=== PATIENT | female | born 1985 | race Caucasian/White ===

== ENCOUNTER → 2022-08-21 18:27 | Outpatient (ROUT) | payer OTHER, SELFPAY | PROVIDERS: Family Provider Family Medicine; PCP Family Medicine; Visit Provider Family Medicine | DX: A49.02 Methicillin resistant Staphylococcus aureus infection, unspecified site (principal) | CPT/HCPCS: 87070; 87075; 87205 ==

== ENCOUNTER → 2023-05-02 13:36 | Outpatient (CLI) | payer OTHER, SELFPAY ==
--- NOTE | 2023-05-02 13:40 | DI.MG.S_ITS ---
BILATERAL DIGITAL SCREENING MAMMOGRAM 3D/2D WITH CAD: 05/02/2023 CLINICAL: Baseline exam. Routine screening.Family history of breast cancer. No prior exams were available for comparison. Both breasts are almost entirely fatty (category a/<25% glandular tissue). Current study was also evaluated with a Computer Aided Detection (CAD) system. There is a focal asymmetry in the right breast at 11 o'clock middle depth. There is a focal asymmetry in the left breast at 2 o'clock middle depth. There is architectural distortion associated with the focal asymmetry. No other significant masses or calcifications are seen in either breast. IMPRESSION: INCOMPLETE: NEEDS ADDITIONAL IMAGING EVALUATION The focal asymmetry in the right breast at 11 o'clock middle depth is indeterminate. Additional views with possible ultrasound are recommended. The focal asymmetry in the left breast at 2 o'clock middle depth is indeterminate. Additional views with possible ultrasound are recommended. Based on the Tyrer Cuzick model (a risk assessment model) the patient's lifetime risk is 6.8% and her 10 year risk is 0.8%. According to the ACR, ACS, and NCCN guidelines, an annual breast MRI exam along with mammogram is recommended if the patient's lifetime risk is 20% or greater. This exam was interpreted at Station ID: [id number]. NOTE: For mammograms, a report in lay terms will be sent to the patient. Approximately 15% of breast malignancies will not be visualized mammographically. In the management of a palpable breast mass, a negative mammogram must not discourage biopsy of a clinically suspicious lesion. Electronically Signed By: Gay dooley/:05/02/2023 16:13:23 letter sent: Additional Imaging Needed ACR BI-RADS Category 0: Incomplete 3340F
--- NOTE | 2023-05-02 13:40 | DI.MRI.S_ITS ---
PROCEDURE: MR HEAD/BRAIN WO/W CON INDICATIONS: Benign neoplasm of the brain;Routine screening TECHNIQUE: Noncontrast axial T1 spin echo, axial T2 fast spin echo, sagittal and axial FLAIR, coronal T2 fast spin echo, axial gradient echo, axial diffusion and ADC through the brain. After the administration of contrast, axial and coronal and sagittal 3D VIBE or T1 spin echo with fat saturation through the brain. COMPARISON: [facility], MR, MR BRAIN W&WO CON, 01/09/2015, 15:58. [facility], MR, BRAIN WITH AND WITHOUT CONTRAS, 02/13/2010, 10:54. FINDINGS: Image quality: Excellent. CSF Spaces: Basal cisterns are patent. No extra-axial fluid collections. Ventricles are normal in size and shape. Brain: No midline shift. No intracranial bleeds or masses. No abnormal intracranial enhancement. The brainstem appears normal. Diffusion-weighted images demonstrate no acute infarct. No chronic ischemic insults. Normal intravascular flow voids are present. Left frontal resection cavity is present. There is mild appearance peripheral FLAIR signal, unchanged. No discrete areas of enhancement. Skull and face: Calvarial marrow is normal in signal. Orbits appear normal. Sinuses: Sinuses and mastoids appear clear. IMPRESSION: Stable appearance left frontal resection cavity without visualized area recurrent or residual disease. Dictated by: Yaneth Ayala M.D. on 05/03/2023 at 16:21 Approved by: Yaneth Ayala M.D. on 05/03/2023 at 16:23
== END ==
PROVIDERS: Family Provider Family Medicine; PCP Family Medicine; Referring Provider Family Medicine; Visit Provider Family Medicine
DX: Z12.31 Encounter for screening mammogram for malignant neoplasm of breast (principal); Z80.3 Family history of malignant neoplasm of breast; Z08 Encounter for follow-up examination after completed treatment for malignant neoplasm; Z86.011 Personal history of benign neoplasm of the brain
CPT/HCPCS: 70553; 77063; 77067; A9579

== ENCOUNTER → 2023-06-27 09:20 | Outpatient (CLI) | payer OTHER, SELFPAY ==
--- NOTE | 2023-06-27 09:21 | DI.US.S_ITS ---
LIMITED ULTRASOUND OF RIGHT BREAST: 06/27/2023 CLINICAL: Patient returns today to evaluate a focal asymmetry in the right breast. Comparison is made to exams dated: 06/27/2023 mammogram and 05/02/2023 mammogram - [facility]. Real-time ultrasound of the right breast 10 o'clock region was performed on the areas of interest. Ramirez scale images of the real-time examination were reviewed. IMPRESSION: NEGATIVE There is no sonographic evidence of malignancy. There is no sonographic abnormality seen in the right breast to correspond with the mammography finding which is most consistent with superimposed fibroglandular tissue. Return to annual mammogram screening schedule is recommended. This exam was interpreted at Station ID: [id number]. Electronically Signed By: Gay dooley/:06/27/2023 11:00:56 letter sent: Normal Exam Ultrasound BI-RADS: 1 Negative
--- NOTE | 2023-06-27 09:21 | DI.MG.S_ITS ---
BILATERAL DIGITAL DIAGNOSTIC MAMMOGRAM 3D/2D: 06/27/2023 CLINICAL: Additional evaluation requested from prior study. Comparison is made to exam dated: 05/02/2023 mammogram - [facility]. Both breasts are almost entirely fatty (category a/<25% glandular tissue). The focal asymmetry in the right breast at 11 o'clock middle depth is less prominent in additional views. The focal asymmetry in the left breast at 2 o'clock middle depth is not seen in additional views. No other significant masses or calcifications are seen in either breast. IMPRESSION: INCOMPLETE: NEEDS ADDITIONAL IMAGING EVALUATION The focal asymmetry in the right breast at 11 o'clock middle depth is indeterminate. A targeted ultrasound of the right breast is recommended and will be performed immediately following this exam. The focal asymmetry in the left breast at 2 o'clock middle depth is most consistent with superimposed fibroglandular tissue and is benign. Based on the Tyrer Cuzick model (a risk assessment model) the patient's lifetime risk is 6.8% and her 10 year risk is 0.8%. According to the ACR, ACS, and NCCN guidelines, an annual breast MRI exam along with mammogram is recommended if the patient's lifetime risk is 20% or greater. This exam was interpreted at Station ID: [id number]. NOTE: For mammograms, a report in lay terms will be sent to the patient. Approximately 15% of breast malignancies will not be visualized mammographically. In the management of a palpable breast mass, a negative mammogram must not discourage biopsy of a clinically suspicious lesion. Electronically Signed By: Gay Laird M.D. lk/:06/27/2023 10:26:03 ACR BI-RADS Category 0: Incomplete 3340F
== END ==
LOC: MAMMO 09:20
PROVIDERS: Family Provider Family Medicine; PCP Family Medicine; Referring Provider Family Medicine; Visit Provider Family Medicine
DX: R92.8 Other abnormal and inconclusive findings on diagnostic imaging of breast (principal); N64.89 Other specified disorders of breast; N64.4 Mastodynia; R92.313 Mammographic fatty tissue density, bilateral breasts
CPT/HCPCS: 76642; 77066; G0279

== ENCOUNTER → 2023-11-05 16:14 | Outpatient (CLI) | payer OTHER, SELFPAY ==
--- NOTE | 2023-11-05 16:16 | DI.RAD.S_ITS ---
PROCEDURE: XR CHEST 2V INDICATIONS: Palpitations TECHNIQUE: 2 views of the chest were acquired. COMPARISON: None. FINDINGS: Surgical changes and devices: None. Lungs and pleura: Lungs are clear. No pleural effusions or pneumothorax. Mediastinum: Mediastinal contours are normal. Heart size is normal. Bones and chest wall: No suspicious bony abnormalities. Soft tissues appear unremarkable. IMPRESSION: No acute pulmonary process. Dictated by: Yaneth Ayala M.D. on 11/05/2023 at 21:23 Approved by: Yaneth Ayala M.D. on 11/05/2023 at 21:23
== END ==
LOC: RAD 16:15
PROVIDERS: Family Provider Family Medicine; PCP Family Medicine; Referring Provider Family Medicine; Visit Provider Family Medicine
DX: R00.2 Palpitations (principal)
CPT/HCPCS: 71046

== ENCOUNTER → 2024-07-05 14:36 | Outpatient (CLI) | payer OTHER, SELFPAY ==
--- NOTE | 2024-07-05 14:37 | DI.ECHO.S_ITS ---
[place] +---------+ Hospital : : [address] : : [place] : : [id number] : : Phone: [phone] Echocardiogram Report + + :Name: RIYA SULLIVAN Study Date: 07/05/2024 Height: 69 in : :Hospital ReadingLocation: Weight: 370 lb: : Gender: Female BSA: 2.7 m2 : :: 1985 Age: 39 yrs : :Reason For Study: PALPITATIONS : :Ordering Physician: NINA, : :KONRAD Performed By: Scott Mireles : :Referring: KONRAD WOOD : + + Interpretation Summary The ejection fraction is estimated to be 60-65%. Diastolic parameters suggest probable normal left ventricular diastolic function and normal filling pressures. Left ventricular wall thickness is mildly increased. The right ventricle grossly appears normal in size with probable normal systolic function. No obvious valvular abnormalities. Pulmonary artery pressures cannot be estimated because of the lack of a measurable TR jet velocity but the IVC suggests a CVP of around 8 mmHg. The ascending aorta is mildly enlarged. Procedure: A two-dimensional transthoracic echocardiogram with color flow and Doppler was performed. The study quality was technically difficult. There is no prior echocardiogram noted for this patient. The patient was in normal sinus rhythm during the exam. Left Ventricle: The left ventricle is normal in size. Left ventricular wall thickness is mildly increased. There is no ventricular septal defect visualized. The ejection fraction is estimated to be 60-65%. There are no focal wall motion abnormalities. Diastolic parameters suggest probable normal left ventricular diastolic function and normal filling pressures. Right Ventricle: The right ventricle is not well visualized. The right ventricle grossly appears normal in size with probable normal systolic function. Atria: The left atrial size is normal. Right atrial size is normal. There is no Doppler evidence for an interatrial shunt. Mitral Valve: The mitral valve leaflets appear normal. There is no evidence of stenosis, fluttering, or prolapse. There is no mitral regurgitation noted. Aortic Valve: The aortic valve is grossly normal. There is no aortic valve stenosis. There is trace aortic regurgitation. Tricuspid Valve: The tricuspid valve is not well visualized, but is grossly normal. No tricuspid regurgitation. Pulmonary artery pressures cannot be estimated because of the lack of a measurable TR jet velocity but the IVC suggests a CVP of around 8 mmHg. Pulmonic Valve: The pulmonic valve is not well visualized. There is no pulmonic valvular regurgitation. Great Vessels: The aortic root is mildly dilated. The ascending aorta is mildly enlarged. The pulmonary artery is normal size. The IVC is dilated (diameter is greater than 2.1 cm) yet it collapses greater than 50% with a sniff. This suggests a right atrial pressure of 8 mm Hg. Pericardium/ Pleura There is no pericardial effusion. There is no pleural effusion. MMode/2D Measurements & Calculations LVIDd: 5.3 cm LVOT diam: 2.1 cm LVIDs: 3.7 cm Ao root diam: 3.9 cm FS: 31.0 % asc Aorta Diam: 3.8 cm EPSS: 0.63 cm Ao Arch Diam (Prox Trans): 1.8 cm IVSd: 1.3 cm LVPWd: 1.2 cm LV blanton. diameter/BSA (cm/m^2): 2.0 LV sys. diameter/BSA (cm/m^2): 1.4 LA A2 area: 17.7 cm2 RA long axis: 4.4 cm LA A4 area: 24.8 cm2 RA area: 9.8 cm2 LA length (vol): 6.9 cm RA vol: 18.6 ml LA vol: 54.2 ml RA : 6.9 ml/m2 LA vol index: 20.2 ml/m2 IVC diam: 2.1 cm TAPSE: 3.0 cm Doppler Measurements & Calculations Ao V2 max: 169.3 cm/sec LVOT Max Luis: 127.6 cm/sec Ao V2 mean: 122.6 cm/sec LV V1 max P.5 mmHg Ao max P.5 mmHg LV V1 VTI: 29.5 cm Ao mean P.6 mmHg DOMINGUEZ(I,D): 2.8 cm2 Ao V2 VTI: 35.9 cm DOMINGUEZ(V,D): 2.6 cm2 sev ratio: 0.82 DOMINGUEZ indexed to BSA (cm^2/m^2): 1.1 MV E max luis: 91.4 cm/sec PA V2 max: 112.0 cm/sec MV A max luis: 66.1 cm/sec PA V2 mean: 81.3 cm/sec MV E/A: 1.4 PA mean P.9 mmHg Med Peak E' Luis: 10.3 cm/sec PA pr(Accel): 34.5 mmHg E/E' med: 8.9 Lat Peak E' Luis: 12.3 cm/sec E/E' lat: 7.4 E/e' average: 8.2 MV dec time: 0.23 sec SV(LVOT): 101.3 ml Reading Physician:04:15 PM
== END ==
PROVIDERS: Family Provider Family Medicine; PCP Family Medicine; Referring Provider Family Medicine; Visit Provider Family Medicine
DX: I47.10 Supraventricular tachycardia, unspecified (principal); R00.2 Palpitations; I10 Essential (primary) hypertension; I77.810 Thoracic aortic ectasia; I77.89 Other specified disorders of arteries and arterioles
CPT/HCPCS: 93306

== ENCOUNTER → 2024-09-10 09:51 | Outpatient (CLI) | payer OTHER, SELFPAY ==
--- NOTE | 2024-09-10 09:52 | DI.MG.S_ITS ---
MM screening mammo BI: 09/10/2024. BI-RADS: 1 CLINICAL: 39-year old female for bilateral screening mammogram. Tyrer-Cuzick lifetime risk of 13.8%. No personal or first-degree family history of breast cancer. Current reported family history of breast cancer: paternal grandmother. PRIOR EXAMS 06/27/2023, 05/02/2023. MAMMOGRAPHY TECHNIQUE: 2D and 3D (tomosynthesis) digital mammographic views obtained, with additional images as needed for full coverage. Current study was also evaluated with a Computer Aided Detection (CAD) system. DENSITY A. The breasts are almost entirely fatty. MAMMOGRAPHY FINDINGS Bilateral: No suspicious mass, asymmetry, microcalcification, or other abnormality seen. No significant change from comparison. IMPRESSION: * No evidence of malignancy. RECOMMENDATIONS Bilateral * Annual screening mammography. OVERALL ASSESSMENT CATEGORY BI-RADS-1: Negative. The [employer] recommends annual screening mammography beginning at age 40 for women with average risk of breast cancer. ELECTRONICALLY SIGNED: Thu Cortez M.D. on 09/12/2024 at 12:42:14 AM PT Interpreting Station ID: [id number]
== END ==
LOC: MAMMO 09:51
PROVIDERS: Family Provider Family Medicine; PCP Family Medicine; Referring Provider Family Medicine; Visit Provider Family Medicine
DX: Z12.31 Encounter for screening mammogram for malignant neoplasm of breast (principal); Z80.3 Family history of malignant neoplasm of breast; R92.313 Mammographic fatty tissue density, bilateral breasts
CPT/HCPCS: 77063; 77067